=== PATIENT | male | born 1980 | race Two or more races ===

== ENCOUNTER 2016-12-31 14:01 | Emergency (ER) | payer MEDICAID, OTHER ==
[2016-12-31] MEDS ORDERED: IBUPROFEN 600 MG TABLET ONE (15:43)
[2016-12-31] MEDS ORDERED: ACETAMINOPHEN 325 MG TABLET ONE (15:44)
[2016-12-31] MEDS ORDERED: DOXYCYCLINE HYCLATE 100 MG TABLET ONE (17:22)
--- NOTE | 2016-12-31 22:04 | RAD ---
12/31/2016 4:01 PM CHEST - 2 VIEWS History: Cough, fever. Comparison: 08/10/2009 Findings: Two views of the chest are obtained. The lungs demonstrate patchy airspace disease predominantly at the left base worrisome for pneumonia. Remainder the lungs are clear. The cardiomediastinal silhouette is unremarkable.. The osseous structures are intact.. IMPRESSION: Left basilar pneumonia. This should be followed to radiographic clearance in 6-8 weeks' time..
== END 2016-12-31 17:31 | disposition home or self-care (01) ==
LOC: ED 14:01
DX: J15.9 Unspecified bacterial pneumonia (principal)
CPT/HCPCS: 87880; 71020; 87804; 99283 ×2; A9270 ×3